=== PATIENT | male | born 1965 | race American Indian/Alaskan Native ===

== ENCOUNTER 2018-02-04 06:35 | Emergency (ER) | payer OTHER ==
[2018-02-04 08:01] LABS: URINE BILIRUBIN NEGATIVE (NEGATIVE); URINE BLOOD 1+ (NEGATIVE); URINE CLARITY Clear (Clear); URINE COLOR Yellow (YELLOW); URINE GLUCOSE (UA) NORMAL (Normal); URINE LEUKOCYTE ESTERASE NEG Leu/uL (Negative); URINE PROTEIN NEGATIVE (NEGATIVE); URINE UROBILINOGEN NORMAL mg/dL (0.2-1.0)
--- NOTE | 2018-02-04 08:54 | US ---
Date of service: 02/04/2018 HISTORY: left testicular pain; as per patient prior right orchectomy in 2005. TECHNIQUE: Realtime sonography through the scrotum with color and doppler flow. COMPARISON: None Available. FINDINGS: RIGHT TESTICLE: Prior right orchiectomy. RIGHT EPIDIDYMIS: Prior right orchectomy. LEFT TESTICLE: Measures 3.8 x 2.8 x 2.9 cm. Normal echotexture and flow. LEFT EPIDIDYMIS: Left epididymal head is enlarged to 0.6 x 2.3 x 2.4 cm with hyperemia on color Doppler ultrasound reflecting epididymitis. The left epididymal cyst measures 0.4 x 0.4 x 0 4 cm. HYDROCELE: Large left hydrocele identified. VARICOCELE: None. OTHER FINDINGS: None. IMPRESSION: 1. No evidence of left testicular torsion, cyst or mass. 2. Left epididymitis identified with a small epididymal head cyst evident as well. 3. Moderately large left hydrocele. 4. Prior right orchectomy as per patient in 2005. No right testicle or epididymis identified.
--- NOTE | 2018-02-04 10:13 | C.PDOC ---
History Of Present Illness 52-year-old male, presents to the emergency department with complaints of testicular pain. Patient was seen by Dr Mani Cabrera and told he needed an ultrasound. Patient states his right testicle was removed due to past trauma. He denies any nausea/vomiting, rash, or any other associated symptoms. No other complaints at this time. Chief Complaint (Nursing): Male Genitourinary History Per: Patient History/Exam Limitations: no limitations Onset/Duration Of Symptoms: Days Current Symptoms Are (Timing): Still Present Past Medical History Reviewed: Historical Data, Nursing Documentation, Vital Signs Vital Signs: Last Vital Signs Temp 97.8 F 02/04/18 08:49 Pulse 55 L 02/04/18 08:49 Resp 17 02/04/18 08:49 BP 148/85 02/04/18 08:49 Pulse Ox 99 02/04/18 08:49 - Medical History PMH: HTN Family History: States: No Known Family Hx - Social History Hx Alcohol Use: Yes Hx Substance Use: No Review Of Systems Constitutional: Negative for: Fever, Chills Respiratory: Negative for: Shortness of Breath Gastrointestinal: Negative for: Vomiting Genitourinary: Positive for: Scrotal Pain. Negative for: Dysuria Musculoskeletal: Negative for: Back Pain Skin: Negative for: Rash Neurological: Negative for: Weakness, Numbness Physical Exam - Physical Exam Appears: Non-toxic, No Acute Distress Skin: Warm, Dry, No Rash Head: Atraumatic, Normacephalic Eye(s): bilateral: Normal Inspection Nose: Normal Oral Mucosa: Moist Lips: Normal Appearing Neck: Normal ROM Cardiovascular: Rhythm Regular, No Murmur Respiratory: No Accessory Muscle Use Male Genital: Other (one testicle is descended) Extremity: Normal ROM, No Deformity Neurological/Psych: Oriented x3, Normal Speech ED Course And Treatment O2 Sat by Pulse Oximetry: 99 Pulse Ox Interpretation: Normal (RA) - CT Scan/US US Other Rad Studies (CT/US): Read By Radiologist, Radiology Report Reviewed CT/US Interpretation: Accession No. : [id number]. Patient Name / ID : ROSINA HYATT / [id number]. Exam Date : 02/04/2018 08:08:16 ( Approved ). Study Comment : Sex / Age : M / 52Y. Creator : Tevin Cano MD. Dictator : Tevin Cano MD. Commercial Litigation Associate : Project Management Specialist : Tevin Cano MD. Approver2 : Report Date : 02/04/2018 08:50:06. My Comment : . Date of service: 02/04/2018. HISTORY: left testicular pain; as per patient prior right orchectomy in 2005. TECHNIQUE: Realtime sonography through the scrotum with color and doppler flow. COMPARISON: None Available. FINDINGS: RIGHT TESTICLE: Prior right orchiectomy. RIGHT EPIDIDYMIS: Prior right orchectomy. LEFT TESTICLE: Measures 3.8 x 2.8 x 2.9 cm. Normal echotexture and flow. LEFT EPIDIDYMIS: Left epididymal head is enlarged to 0.6 x 2.3 x 2.4 cm with hyperemia on color Doppler ultrasound reflecting epididymitis. The left epididymal cyst measures 0.4 x 0.4 x 0 4 cm. HYDROCELE: Large left hydrocele identified. VARICOCELE: None. OTHER FINDINGS: None. IMPRESSION: 1. No evidence of left testicular torsion, cyst or mass. 2. Left epididymitis identified with a small epididymal head cyst evident as well. 3. Moderately large left hydrocele. 4. Prior right orchectomy as per patient in 2005. No right testicle or epididymis identified. Disposition Counseled Patient/Family Regarding: Studies Performed, Diagnosis, Need For Followup, Rx Given - Disposition Referrals: Da Solis MD [Staff Provider] - Disposition: HOME/ ROUTINE Disposition Time: 10:17 Condition: STABLE Additional Instructions: follow up with urologist within 2 days call to make an appointment take medications as prescribed return to ER if symptoms worsens or progress Prescriptions: Acetaminophen/Codeine [Tylenol/Codeine 300 MG/30 MG] 1 tab PO Q6H PRN #12 tab PRN Reason: Pain, Severe (8-10) levoFLOXacin 500 mg in D5W [Levaquin 500MG] 500 mg PO DAILY #14 tab Naproxen [Naprosyn] 500 mg PO BID PRN #16 tab PRN Reason: Pain, Moderate (4-7) Instructions: Epididymitis (DC) Forms: General Discharge Instructions, [facility] (French), Work Excuse - Clinical Impression Clinical Impression: Epididymitis - Scribe Statement The provider has reviewed the documentation as recorded by the Scribe (Ariadna Loco) Provider Attestation: All medical record entries made by the Scribe were at my direction and personally dictated by me. I have reviewed the chart and agree that the record accurately reflects my personal performance of the history, physical exam, medical decision making, and the department course for this patient. I have also personally directed, reviewed, and agree with the discharge instructions and disposition.
[2018-02-04] MEDS ORDERED: Acetaminophen-Codeine 300/30 mg Tab PO STA (10:17)
[2018-02-04 10:29] VITALS: BP 139/91; PULSE 60; RESP 20; TEMP 97.6
[2018-02-04] MEDS ORDERED: Acetaminophen/Codeine elixir 120-12mg/5ml ONE (10:31)
[2018-02-04] MEDS ORDERED: Acetaminophen-Codeine 300/30 mg Tab PO ONE (10:35)
[2018-02-04 13:01] VITALS: O2SAT 99
== END 2018-02-04 10:36 | disposition home or self-care (01) ==
LOC: C.ER 06:35
DX: N45.1 Epididymitis (principal)